=== PATIENT | male | born 1965 | race Caucasian/White ===

== ENCOUNTER → 2016-11-21 | Outpatient (CLI) | payer BC ==
[2016-11-21 12:01] LABS: BLOOD UREA NITROGEN 13 mg/dL (7-22); CALCIUM 9.4 mg/dL (8.7-10.7); CHLORIDE 104 meq/L (98-112); EST GLOMERULAR FILTRATION > 60 (>60 ml/min/1.73m(2)); GLUCOSE 82 mg/dL (78-110); POTASSIUM 3.9 meq/L (3.8-5.2); SODIUM 142 meq/L (135-145)
[2016-11-21 12:03] LABS: BASOPHILS # (AUTO) 0.02 10*3/UL; BASOPHILS % (AUTO) 0.2 % (0-1); EOSINOPHILS % (AUTO) 3.6 % (0-8); HEMATOCRIT 44.2 % (42.0-52.0); HEMOGLOBIN 15.7 g/dL (14.0-18.0); IMM GRAN % (AUTO) 0.2 % (0-5); IMM GRAN# (AUTO) 0.02 10*3/UL; LYMPHOCYTES # (AUTO) 2.95 10*3/uL; LYMPHOCYTES % (AUTO) 35.8 % (10-50); MEAN CORPUSCULAR HEMOGLOBIN 30.9 PG (27-31); MEAN CORPUSCULAR HGB CONC 35.5 g/dL (33-37); MEAN PLATELET VOLUME 9.1 FL (7.4-12.2); MONOCYTES # (AUTO) 0.83 10*3/UL (0.3-0.8); MONOCYTES % (AUTO) 10.1 % (5-15); NEUTROPHILS # (AUTO) 4.11 10*3/UL; NEUTROPHILS % (AUTO) 50.1 % (50-80); RDW COEFFICIENT OF VARIATION 13.1 % (11.5-14.5); RED BLOOD COUNT 5.08 10^6/uL (4.70-6.10); WHITE BLOOD COUNT 8.23 10^3/uL (4.8-10.8)
[2016-11-21 12:10] LABS: PLATELET MORPHOLOGY COMMENT NORMAL MORPHOLOGY (NORM)
== END ==
LOC: LAB 11:18
PROVIDERS: ATTEND Nurse Practitioner Family
DX: R09.02 Hypoxemia (principal); R06.09 Other forms of dyspnea; R05 Cough
CPT/HCPCS: 36415; 80048; 85025

== ENCOUNTER 2016-11-23 16:45 | Emergency (ER) | payer BC ==
[2016-11-23] MEDS ORDERED: NORMAL SALINE 10 ML SYRINGE FLUSH IVP PRN (17:00)
--- NOTE | 2016-11-23 18:08 | PDOC ---
Gen Adult / Medical Screen HPI - General Chief Complaint: General Medical Stated Complaint: BLOOD CLOTS SUPERIOR VENA CAVA Date Seen by Provider: 11/23/16 Time Seen by Provider: 18:03 Source: POSITIVE: Patient Exam Limitations: POSITIVE: No limitations Nurse's Notes Reviewed & Considered: Yes - History of Present Illness Initial Comments: This is a 51-year-old male with a history of increased dyspnea on exertion that has been intermittent for the last month or so. He states he initially noticed it about a month or so ago when he tried to lift and move a 4 inch diameter plastic pipeline and she became abruptly short of breath. He states it took him 3 tries to get the fluid drained out of the line, which is very unusual. He can normally do this quite easily. He had no associated chest pain, no swelling in his legs, no history trauma in the recent past prior to the episode. He states he went home to [place], where he did not exert himself much, and had no problems. When he returned to [place], he noticed the same problems again. He states he has felt worse over the past 3 or 4 days, to the point where he can barely walk from the building to his truck without becoming short of breath. He was sent to outpatient radiology for CT of his chest, which was initially read as normal, then subsequently Dr. 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 He is sent here for further evaluation treatment. - Patient Home Medications Home Medications: Home Medications traMADol HCl [Ultram] 50 mg PO Q6H PRN 11/23/16 - Patient Allergies Allergies/Adverse Reactions: Allergies Allergy/AdvReac Type Severity Reaction Status Date / Time pantoprazole sodium Allergy Anaphylaxis Verified 11/23/16 17:07 [From Protonix] Penicillins Allergy Anaphylaxis Verified 11/23/16 17:07 Past Medical History Cardiovascular History: Denies History Respiratory History: Denies History Musculoskeletal History: Back Pain, Back Injury Neurological History: Denies History Blood Disorders: Denies History Tobacco Use: Former Smoker (Quit 20 years ago) Alcohol Use: None Significant Family History: No pertinent family hx, Other (please comment) (No family history of clotting disorders) ROS - Limitations ROS Limitations: No Limitations Constitution: DENIES: Chills, Fever Cardiovascular: DENIES: Chest Pain Respiratory: REPORTS: Cough Non Productive Neurological: DENIES: Dizziness Gastrointestinal: REPORTS: Denies GI Symptoms Endocrine: REPORTS: Fatigue Musculoskeletal: REPORTS: Back Pain ENT: REPORTS: Congestion (For 2 days), Nasal Drainage (For 2 days) Skin: DENIES: Rash Gen Adult/Medical Screen Exam - General Appearance General Appearance: POSITIVE: Alert, Cooperative, No Acute Distress - HEENT HEENT: POSITIVE: PERRL. 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 Lab Results Reviewed: Yes Lab Results:: Laboratory Results 11/23/16 Range/Units 17:50 WBC 8.24 (4.8-10.8) 10^3/uL RBC 5.12 (4.70-6.10) 10^6/uL Hgb 15.9 (14.0-18.0) g/dL Hct 44.4 (42.0-52.0) % MCV 86.7 (80-90) FL MCH 31.1 H (27-31) PG MCHC 35.8 (33-37) g/dL RDW Std Deviation 40.3 (39-50) fL RDW Coeff of Cirilo 13.0 (11.5-14.5) % Plt Count 283 (140-350) 10*3/uL MPV 9.0 (7.4-12.2) FL Immature Gran % (Auto) 0.4 (0-5) % Neut % (Auto) 51.3 (50-80) % Lymph % (Auto) 34.8 (10-50) % Willacy % (Auto) 9.3 (5-15) % Eos % (Auto) 3.8 (0-8) % Baso % (Auto) 0.4 (0-1) % Immature Gran # (Auto) 0.03 10*3/UL Neut # (Auto) 4.23 10*3/UL Lymph # (Auto) 2.87 10*3/uL Willacy # (Auto) 0.77 (0.3-0.8) 10*3/UL Eos # (Auto) 0.31 10*3/UL Baso # (Auto) 0.03 10*3/UL WBC Morphology Comment Normal morphology (NORM) Plt Morphology Comment Normal morphology (NORM) RBC Morph Comment Normal morphology (NORM) PT 10.0 (9.7-11.4) secs INR 0.97 (0.00-5.90) N/A APTT Pending Sodium 141 (135-145) meq/L Potassium 3.6 L (3.8-5.2) meq/L Chloride 103 (98-112) meq/L Carbon Dioxide 25 (23-33) meq/L Anion Gap 13 (5-20) BUN 12 (7-22) mg/dL Creatinine 1.0 (0.70-1.50) mg/dL Estimated GFR > 60 (>60 ml/min/1.73m(2)) BUN/Creatinine Ratio 12.00 (6-20) Glucose 129 H (78-110) mg/dL Calculated Osmolality 293.0 H (267-292) mOsm/kg Calcium 9.4 (8.7-10.7) mg/dL Troponin I < 0.012 (< 0.040) ng/mL NT-Pro-B Natriuret Pep 51.2 (0-125) PG/ML - Patient's Progress School/Work Release Addressed: POSITIVE: Yes Re-Examine Time: 19:00 (stable) Re-Examine Time:: 20:00 (stable unchanged) MDM / ED Course: Emergency room course: After initial evaluation, initial labs were drawn, the radiologist came and talked with the patient about the initial miscommunication. The patient was stable throughout the course of his emergency room stay. After the initial labs were reviewed and discussed with the patient, I subsequently discussed the case with Dr. Ardon the critical care event attendant at [facility] [place] in [place]. After discussion with her, per her request, I added a troponin I and the BNP test. Those were both normal. The patient socially asked if he would be safe for him to fly back to [place], or if driving would be safer. He also asked me to review all the lab results and tests with his [id number], who is a registered nurse. I also learned that the patient did have a cardiac echo done earlier this afternoon. He does not know the results of that at this time. I subsequently discussed his question about flying with Dr. Ardon when I reviewed the troponin and BNP results with her. She thought that he would need an altitude test to be sure he would not decompensate with flying, and driving will be safer. This was relayed to the patient. In discussion with Dr. Ardon, since the patient has had symptoms for approximately a month and his lab tests are all normal, I believe that this patient is safe to treat as an outpatient with [facility]. He' ll be staying at a local hotel for a while longer to monitor for any drug reactions. Patient Care Time - Estimated PCT Patient Care Time (In Minutes): 45 Vital Signs - Recent Vital Signs Vital Signs: Vital Signs (Last 8 hours) Temp Pulse Resp BP Pulse Ox 11/23/16 16:45 97.8 F 61 17 176/103 94 Discharge Clinical Impression: Pulmonary embolism Discharge Disposition: Discharged to Home Condition: Stable Patient Instructions Given at Discharge: Deep Venous Thrombosis (ED)
[2016-11-23 18:17] LABS: BASOPHILS # (AUTO) 0.03 10*3/UL; BASOPHILS % (AUTO) 0.4 % (0-1); EOSINOPHILS % (AUTO) 3.8 % (0-8); HEMATOCRIT 44.4 % (42.0-52.0); HEMOGLOBIN 15.9 g/dL (14.0-18.0); IMM GRAN % (AUTO) 0.4 % (0-5); IMM GRAN# (AUTO) 0.03 10*3/UL; LYMPHOCYTES # (AUTO) 2.87 10*3/uL; LYMPHOCYTES % (AUTO) 34.8 % (10-50); MEAN CORPUSCULAR HEMOGLOBIN 31.1 PG (27-31); MEAN CORPUSCULAR HGB CONC 35.8 g/dL (33-37); MONOCYTES # (AUTO) 0.77 10*3/UL (0.3-0.8); MONOCYTES % (AUTO) 9.3 % (5-15); NEUTROPHILS # (AUTO) 4.23 10*3/UL; NEUTROPHILS % (AUTO) 51.3 % (50-80); RED BLOOD COUNT 5.12 10^6/uL (4.70-6.10); WHITE BLOOD COUNT 8.24 10^3/uL (4.8-10.8)
[2016-11-23 18:18] LABS: PLATELET MORPHOLOGY COMMENT NORMAL MORPHOLOGY (NORM)
[2016-11-23 18:24] LABS: BLOOD UREA NITROGEN 12 mg/dL (7-22); CALCIUM 9.4 mg/dL (8.7-10.7); CHLORIDE 103 meq/L (98-112); EST GLOMERULAR FILTRATION > 60 (>60 ml/min/1.73m(2)); GLUCOSE 129 mg/dL (78-110); POTASSIUM 3.6 meq/L (3.8-5.2); SODIUM 141 meq/L (135-145)
[2016-11-23 18:31] VITALS: RESP 17; TEMP 97.8
[2016-11-23] MEDS ORDERED: Apixaban Tab 2.5 MG TABLET PO SCH (19:30)
== END 2016-11-23 20:25 | disposition home or self-care (01) ==
LOC: ER 16:45
DX: I26.99 Other pulmonary embolism without acute cor pulmonale (principal); R06.02 Shortness of breath; R09.81 Nasal congestion
CPT/HCPCS: 80048; 81240; 83880; 84484; 85025; 85300; 85303; 85306; 85307; 85366; 85379; 85384; 85390; 85610; 85613; 85670; 85730; 99282

== ENCOUNTER → 2016-11-23 | Outpatient (CLI) | payer BC ==
--- NOTE | 2016-11-23 11:09 | DI ---
CT CHEST SCAN WITH IV CONTRAST, 11/23/2016 8:57 AM : Clinical History: Dyspnea with exertion. Fatigue. Hypoxia. Previous Exam: None at this facility. Scans are performed from the base of the neck to the level of the adrenal glands with contrast. 95 ml of Isovue 300 was injected IV. The base of the neck and thoracic inlet are normal. There are no abnormal axillary, supraclavicular, mediastinal, or hilar nodes. The heart is normal. The pulmonary arteries are normal. There is no evid ence of pulmonary embolism or pulmonary arterial hypertension. There is no acute infiltrate or effusi on. Bullae are present in both upper lobes indicating bullous emphysema. No pulmonary nodules are pre sent. Both adrenal glands, the spleen, and the visualized portions of the liver and pancreas are norm al. READIN. There is no evidence of pulmonary embolism or pulmonary embolism with with infarction. 2. Apical bullae are present bilaterally indicating bullous emphysema.
== END ==
LOC: US 08:50
PROVIDERS: ATTEND Nurse Practitioner Family
DX: R06.09 Other forms of dyspnea (principal); R53.83 Other fatigue; R09.02 Hypoxemia; J43.9 Emphysema, unspecified; I26.99 Other pulmonary embolism without acute cor pulmonale
CPT/HCPCS: 71260; 93306